=== PATIENT | male | born 1970 | race Caucasian/White ===

== ENCOUNTER → 2016-12-09 | Outpatient (CLI) | payer MEDICAID ==
--- NOTE | 2016-12-09 11:27 | REP ---
Clinical: Sinus pain. Technique: Acosta, [place], lateral, and SMV views of the sinuses. Findings: Water's view suggests mucosal thickening to the maxillary sinuses with possible fluid level in the left maxillary sinus. Remainder examination appears relatively normal. Impression: Mucosal thickening to the bilateral maxillary sinuses with small left maxillary sinus fluid level. Signed by Patric Sanchez MD 12/09/2016 11:18 A
== END ==
LOC: M RAD 10:31
PROVIDERS: ATTEND Physician Assistant Medical
DX: R68.84 Jaw pain (principal); J34.89 Other specified disorders of nose and nasal sinuses